=== PATIENT | female | born 1955 | race Native Hawaiian/Other Pacific Islander ===

== ENCOUNTER 2016-02-22 10:19 | Outpatient (CLI) | payer OTHER ==
[~2016-02-22 10:19] MED LIST: ALPR0.5T24 PO; BAYER CHEWABLE81 MG OR; CITALOPRAM40 MG PO; EDLUAR10 MG PO; GLIM4TAB PO; HYDR25TA15 PO; INSUSUS SC; LANTUS100 MG/ML SC; METF100038 OR; OMEP40CA PO; PRINIVIL10 MG OR; TRAM50TA PO
[2016-02-22 11:01] LABS: POTASSIUM 4.6 mmol/L (3.6-5.2); SODIUM 130 mmol/L (136-145)
== END 2016-02-22 19:50 | disposition home or self-care (01) ==
LOC: LABW 10:19
PROVIDERS: Internal Medicine
DX: E11.65 Type 2 diabetes mellitus with hyperglycemia (principal)
CPT/HCPCS: 36415; 80053; 80061; 83036

== ENCOUNTER 2016-11-13 10:04 | Outpatient (CLI) | payer OTHER ==
[2016-11-13 10:33] LABS: PLATELET COUNT 320 K/uL (152-353)
[2016-11-13 10:54] LABS: POTASSIUM 4.4 mmol/L (3.6-5.2); SODIUM 136 mmol/L (136-145)
== END 2016-11-13 19:03 | disposition home or self-care (01) ==
LOC: LABW 10:04
PROVIDERS: Internal Medicine
DX: E11.9 Type 2 diabetes mellitus without complications (principal)
CPT/HCPCS: 36415; 80053; 80061; 81000; 83036; 84443; 85027

== ENCOUNTER 2017-05-04 09:55 | Outpatient (CLI) | payer OTHER ==
[2017-05-04 10:33] LABS: PLATELET COUNT 346 K/uL (152-353)
[2017-05-04 11:09] LABS: POTASSIUM 4.3 mmol/L (3.6-5.2)
== END 2017-05-04 18:00 | disposition home or self-care (01) ==
LOC: LABW 09:55
PROVIDERS: Internal Medicine
DX: E11.9 Type 2 diabetes mellitus without complications (principal)
CPT/HCPCS: 36415; 80053; 80061; 81000; 82043; 82570; 83036; 84439; 84443; 85027

== ENCOUNTER 2017-05-14 15:36 | Outpatient (CLI) | payer OTHER | END 2017-05-14 21:49 | disposition home or self-care (01) | LOC: RESP 15:36 | DX: R53.1 Weakness (principal) | CPT/HCPCS: 93225 ==

== ENCOUNTER 2017-06-12 07:48 | Outpatient (CLI) | payer OTHER ==
[~2017-06-12] VITALS: Ht 30.5 cm; Wt 0.5 kg
== END 2017-06-12 22:27 | disposition home or self-care (01) ==
LOC: NM 07:48
DX: R07.89 Other chest pain (principal)
CPT/HCPCS: A9500; J2785

== ENCOUNTER 2017-08-03 09:37 | Outpatient (CLI) | payer OTHER ==
[2017-08-03 09:54] LABS: PLATELET COUNT 327 K/uL (152-353)
[2017-08-03 10:02] LABS: POTASSIUM 4.2 mmol/L (3.6-5.2)
== END 2017-08-03 23:11 | disposition home or self-care (01) ==
LOC: LABW 09:37
PROVIDERS: Internal Medicine
DX: E11.65 Type 2 diabetes mellitus with hyperglycemia (principal); R10.13 Epigastric pain
CPT/HCPCS: 36415; 80053; 80061; 81000; 82150; 83036; 83690; 85027; 86318; 87086; 87088

== ENCOUNTER 2017-08-21 10:19 | Outpatient (CLI) | payer OTHER | END 2017-08-21 23:13 | disposition home or self-care (01) | LOC: US 10:19 | DX: R10.13 Epigastric pain (principal) ==

== ENCOUNTER 2018-04-30 10:50 | Outpatient (CLI) | payer OTHER ==
[2018-04-30 11:11] LABS: PLATELET COUNT 257 K/uL (152-353)
[2018-04-30 11:38] LABS: POTASSIUM 4.2 mmol/L (3.6-5.2)
== END 2018-04-30 19:39 | disposition home or self-care (01) ==
LOC: LAB 10:50
PROVIDERS: Internal Medicine
DX: E11.9 Type 2 diabetes mellitus without complications (principal); R07.89 Other chest pain
CPT/HCPCS: 36415; 80053; 80061; 83036; 84439; 84443; 85027

== ENCOUNTER 2018-09-19 10:17 | Outpatient (CLI) | payer OTHER ==
[2018-09-19 11:01] LABS: POTASSIUM 4.8 mmol/L (3.6-5.2)
== END 2018-09-19 20:17 | disposition home or self-care (01) ==
LOC: LABW 10:17
PROVIDERS: Internal Medicine
DX: E11.9 Type 2 diabetes mellitus without complications (principal); R94.5 Abnormal results of liver function studies; R79.89 Other specified abnormal findings of blood chemistry
CPT/HCPCS: 36415; 80048; 80076; 83036; 84439; 84443

== ENCOUNTER 2019-01-07 10:46 | Outpatient (CLI) | payer OTHER ==
[2019-01-07 11:11] LABS: PLATELET COUNT 246 K/uL (152-353)
[2019-01-07 11:22] LABS: POTASSIUM 4.9 mmol/L (3.6-5.2)
== END 2019-01-07 22:29 | disposition home or self-care (01) ==
LOC: LABW 10:46
PROVIDERS: Internal Medicine
DX: E11.9 Type 2 diabetes mellitus without complications (principal)
CPT/HCPCS: 36415; 80053; 80061; 81000; 83036; 84439; 84443; 85027

== ENCOUNTER 2019-03-28 10:05 | Emergency (ER) | payer OTHER ==
[~2019-03-28] VITALS: Ht 172.7 cm; Wt 78.5 kg
[2019-03-28 10:05] VITALS: TEMP 98
[2019-03-28 11:26] LABS: PLATELET COUNT 223 K/uL (152-353)
[2019-03-28 11:29] LABS: POTASSIUM 3.9 mmol/L (3.6-5.2)
[2019-03-28 11:41] LABS: PARTIAL THROMBOPLASTIN TIME 25.2 SECONDS (24.5-33.6)
[2019-03-28 15:09] VITALS: BP 172/55
== END 2019-03-28 15:09 | disposition home or self-care (01) ==
LOC: ED 10:05
PROVIDERS: Family Medicine
DX: I10 Essential (primary) hypertension (principal); E11.65 Type 2 diabetes mellitus with hyperglycemia; R55 Syncope and collapse
CPT/HCPCS: 80053; 81000; 85027; 85610; 85730; 99283

== ENCOUNTER 2019-08-27 11:24 | Outpatient (CLI) | payer OTHER ==
[2019-08-27 12:27] LABS: PLATELET COUNT 243 K/uL (152-353)
[2019-08-27 12:41] LABS: POTASSIUM 4.3 mmol/L (3.6-5.2)
== END 2019-08-27 21:32 | disposition home or self-care (01) ==
LOC: LAB 11:24
PROVIDERS: Nurse Practitioner
DX: R53.83 Other fatigue (principal); E11.9 Type 2 diabetes mellitus without complications; E55.9 Vitamin D deficiency, unspecified; E53.8 Deficiency of other specified B group vitamins
CPT/HCPCS: 80053; 80061; 82607; 82652; 83036; 84443; 85027

== ENCOUNTER 2019-09-01 14:31 | Outpatient (CLI) | payer OTHER | END 2019-09-01 19:24 | disposition home or self-care (01) | LOC: MAMMO 14:31 | DX: Z12.31 Encounter for screening mammogram for malignant neoplasm of breast (principal) ==

== ENCOUNTER 2020-01-29 14:19 | Outpatient (CLI) | payer OTHER ==
[2020-01-29 14:55] LABS: POTASSIUM 4.3 mmol/L (3.6-5.2)
== END 2020-01-29 21:13 | disposition home or self-care (01) ==
LOC: LABW 14:19
PROVIDERS: ATTEND Nurse Practitioner
DX: E11.65 Type 2 diabetes mellitus with hyperglycemia (principal)
CPT/HCPCS: 36415; 80053; 80061; 82043; 82570; 83036

== ENCOUNTER 2020-06-17 10:22 | Outpatient (CLI) | payer OTHER ==
[2020-06-17 10:50] LABS: PLATELET COUNT 227 K/uL (152-353)
== END 2020-06-17 19:25 | disposition home or self-care (01) ==
LOC: LABW 10:22
PROVIDERS: ATTEND Internal Medicine
DX: E11.9 Type 2 diabetes mellitus without complications (principal)
CPT/HCPCS: 36415; 80053; 80061; 81000; 82043; 82570; 83036; 84439; 84443; 85027

== ENCOUNTER 2021-04-01 10:53 | Outpatient (CLI) | payer OTHER ==
[2021-04-01 11:15] LABS: PLATELET COUNT 186 K/uL (152-353)
== END 2021-04-01 19:58 | disposition home or self-care (01) ==
LOC: LABW 10:53
PROVIDERS: ATTEND Internal Medicine
DX: E11.9 Type 2 diabetes mellitus without complications (principal)
CPT/HCPCS: 36415; 80053; 80061; 81000; 82043; 83036; 84439; 84443; 85027

== ENCOUNTER 2021-06-07 21:55 | Emergency (ER) | payer OTHER ==
[~2021-06-07] VITALS: Ht 172.7 cm; Wt 78.5 kg
[2021-06-07 22:00] VITALS: TEMP 98.1
[2021-06-08 01:03] VITALS: BP 118/53
== END 2021-06-08 01:03 | disposition home or self-care (01) ==
LOC: ED 21:55
DX: S80.02XA Contusion of left knee, initial encounter (principal); S10.83XA Contusion of other specified part of neck, initial encounter; S30.0XXA Contusion of lower back and pelvis, initial encounter; W54.1XXA Struck by dog, initial encounter; Y92.096 Garden or yard of other non-institutional residence as the place of occurrence of the external cause
CPT/HCPCS: 96372; 99283; J1885

== ENCOUNTER 2021-11-08 15:04 | Outpatient (CLI) | payer OTHER ==
[2021-11-08 15:19] LABS: PLATELET COUNT 175 K/uL (152-353)
[2021-11-08 15:44] LABS: POTASSIUM 4.7 mmol/L (3.6-5.2)
== END 2021-11-08 20:26 | disposition home or self-care (01) ==
LOC: LAB 15:04
PROVIDERS: ATTEND Internal Medicine
DX: E11.9 Type 2 diabetes mellitus without complications (principal); F41.1 Generalized anxiety disorder; Z78.0 Asymptomatic menopausal state; E55.9 Vitamin D deficiency, unspecified
CPT/HCPCS: 80053; 80061; 81002; 82043; 82306; 83036; 84439; 84443; 85027

== ENCOUNTER 2021-11-23 13:04 | Outpatient (CLI) | payer OTHER | END 2021-11-23 19:13 | disposition home or self-care (01) | LOC: RAD 13:04 | PROVIDERS: ATTEND Internal Medicine | DX: Z78.0 Asymptomatic menopausal state (principal); Z12.31 Encounter for screening mammogram for malignant neoplasm of breast ==

== ENCOUNTER 2021-12-16 12:21 | Outpatient (CLI) | payer OTHER | END 2021-12-16 19:31 | disposition home or self-care (01) | LOC: US 12:21 | PROVIDERS: ATTEND Internal Medicine | DX: R79.89 Other specified abnormal findings of blood chemistry (principal) ==

== ENCOUNTER 2021-12-28 13:32 | Outpatient (CLI) | payer OTHER ==
[2021-12-28 13:54] LABS: PLATELET COUNT 183 K/uL (152-353)
== END 2021-12-28 19:15 | disposition home or self-care (01) ==
LOC: LAB 13:32
PROVIDERS: ATTEND Internal Medicine
DX: D64.9 Anemia, unspecified (principal); E53.8 Deficiency of other specified B group vitamins
CPT/HCPCS: 82607; 82728; 82746; 83540; 83550; 84439; 84443; 85027

== ENCOUNTER 2022-02-03 10:43 | Outpatient (CLI) | payer OTHER | END 2022-02-03 18:58 | disposition home or self-care (01) | LOC: LABW 10:43 | PROVIDERS: ATTEND Internal Medicine Endocrinology, Diabetes & Metabolism | DX: E05.20 Thyrotoxicosis with toxic multinodular goiter without thyrotoxic crisis or storm (principal) | CPT/HCPCS: 36415; 83520; 84439; 84443; 84445; 84480; 84481; 86376; 86800 ==

== ENCOUNTER 2022-04-28 13:15 | Outpatient (CLI) | payer OTHER ==
[2022-04-28 13:35] LABS: PLATELET COUNT 173 K/uL (152-353)
[2022-04-28 13:57] LABS: POTASSIUM 4.3 mmol/L (3.6-5.2)
== END 2022-04-28 19:34 | disposition home or self-care (01) ==
LOC: LAB 13:15
PROVIDERS: ATTEND Internal Medicine
DX: E11.9 Type 2 diabetes mellitus without complications (principal); D64.89 Other specified anemias; E04.1 Nontoxic single thyroid nodule
CPT/HCPCS: 80053; 80061; 81002; 83036; 84439; 84443; 85027

== ENCOUNTER 2022-08-30 11:09 | Day surgery (SDC) | payer OTHER ==
[~2022-08-30] VITALS: Ht 165.1 cm; Wt 68.0 kg
== END 2022-08-30 13:05 | disposition home or self-care (01) ==
LOC: OR 11:09
PROVIDERS: ATTEND Internal Medicine Gastroenterology
PROC: 0DBH8ZX Excision of Cecum, Via Natural or Artificial Opening Endoscopic, Diagnostic (ICD-10-PCS; principal; 2022-08-30)
DX: Z12.11 Encounter for screening for malignant neoplasm of colon (principal); D12.0 Benign neoplasm of cecum; K57.30 Diverticulosis of large intestine without perforation or abscess without bleeding; K64.0 First degree hemorrhoids
CPT/HCPCS: J2704; J7120

== ENCOUNTER 2022-09-20 11:00 | Day surgery (SDC) | payer OTHER ==
[~2022-09-20] VITALS: Ht 165.1 cm; Wt 68.0 kg
== END 2022-09-20 13:45 | disposition home or self-care (01) ==
LOC: OR 11:00
PROVIDERS: ATTEND Internal Medicine Gastroenterology
PROC: 0DD78ZX Extraction of Stomach, Pylorus, Via Natural or Artificial Opening Endoscopic, Diagnostic (ICD-10-PCS; principal; 2022-09-20)
DX: K29.00 Acute gastritis without bleeding (principal); K20.90 Esophagitis, unspecified without bleeding; E11.9 Type 2 diabetes mellitus without complications; I10 Essential (primary) hypertension; M19.90 Unspecified osteoarthritis, unspecified site; E07.9 Disorder of thyroid, unspecified; E78.5 Hyperlipidemia, unspecified
CPT/HCPCS: J2001; J2704; J7120

== ENCOUNTER 2022-10-10 12:45 | Outpatient (CLI) | payer OTHER | END 2022-10-10 20:52 | disposition home or self-care (01) | LOC: LABW 12:45 | PROVIDERS: ATTEND Internal Medicine Gastroenterology | DX: K59.1 Functional diarrhea (principal) | CPT/HCPCS: 82705; 83630; 87015; 87045; 87324; 87328; 87329; 87449; 87899 ==